=== PATIENT | male | born 1975 | race Two or more races ===

== ENCOUNTER 2025-03-16 18:18 | Emergency (ER) | payer OTHER ==
[~2025-03-16] VITALS: Ht 182.9 cm; Wt 105.1 kg
[2025-03-16 18:52] LABS: Hematocrit 43.9 % (41.0-53.0); Hemoglobin 15.3 g/dL (13.5-17.5); Mean Corpuscular Hemoglobin 30.1 pg (28.0-32.0); Mean Corpuscular Volume 86.2 fL (80.0-100.0); Nucleated Red Blood Cells % 0.1 %
[2025-03-16] MEDS: ONDANSETRON ODT 4 MG TAB PO ONE (19:01)
[2025-03-16 19:07] LABS: Alanine Aminotransferase 33 U/L (7-40); Alkaline Phosphatase 101 U/L (46-116); Calcium 9.1 mg/dL (8.7-10.4); Carbon Dioxide 29 mmol/L (20-31); Chloride 102 mmol/L (98-107)
[2025-03-16 19:08] LABS: Albumin 4.5 g/dL (3.2-4.8); Anion Gap 10 (5-15); BUN/Creatinine Ratio 12.5 (10.0-20.0); Bilirubin, Total 0.5 mg/dL (0.2-1.0); Blood Urea Nitrogen 12 mg/dL (9-23); Glucose 88 mg/dL (74-106); Lipase 49 U/L (12-53); Potassium 4.2 mmol/L (3.5-5.1); Sodium 141 mmol/L (136-145); Total Protein 7.3 g/dL (5.7-8.2)
--- NOTE | 2025-03-16 20:24 | ED.PDOC ---
History of Present Illness HPI Comments 49-year-old male presents to the ED with a chief complaint of headache with associated symptoms of nausea, substernal chest pressure, and dizziness for one- week. Patient reports generalized headache as constant, with some alleviation via Tylenol medication. Patient reports being unable to sleep last night due to the pain. There are no further complaints or modifying factors at this time. REVIEW OF SYSTEMS: General: No fever, no chills, or fatigue HEENT: No sore throat, no earache, no congestion, no neck pain. Cardiac: (+) substernal chest pressure. No chest pain. No palpitations. Lungs: No shortness of breath, no cough. GI: (+) nausea, no vomiting, no diarrhea, no constipation, no abdominal pain : No dysuria, frequency, or urgency. No hematuria. Musculoskeletal: No joint pain , no joint swelling, no extremity edema. Skin: No rash, no itching. Neuro: (+) headache, (+) dizziness, no weakness (And as sated in HPI) PHYSICAL EXAM: General: Awake, alert and oriented. No acute distress. Skin: Skin in warm, dry and intact. Appropriate color for ethnicity. HEENT: The head is normocephalic and atraumatic. Conjunctivae are clear without exudates or hemorrhage. Sclera is non-icteric. Eyelids are normal in appearance without swelling or lesions. Oral mucosa is pink and moist Neck: The neck is supple with normal range of motion. No JVD. Cardiac: Heart rate and rhythm are normal. No murmurs, gallops, or rubs are auscultated. Respiratory: No signs of respiratory distress. Lung sounds are clear in all l obes bilaterally without rales, rhonchi, or wheezes. Abdominal: Abdomen is soft, non-tender without distention, guarding or rigidity. Bowel sounds are present and normoactive in all four quadrants. Extremities: Lower extremities without edema. Neurological: The patient is awake, alert and oriented to person, place, and time with normal speech. Speech is clear. There is no facial asymmetry. Psychiatric: Appropriate mood and affect. Good judgement and insight. Chief Complaint: Nausea/Vomiting Time Seen by MD: 19:54 Reviewed Notes: Medications, Allergies Allergies: Coded Allergies: NO KNOWN ALLERGIES (Unverified , 03/16/25) Information Source: Patient Mode of Arrival: Ambulatory Severity: Moderate Timing: Weeks Duration: Since onset Past Medical History PAST MEDICAL HISTORY: Denies Surgical History: Denies all surgeries Family History Family History: Reviewed,noncontributory to illness, No family hx of Cancer, No family hx of DM, No family hx of Heart fermin, No family hx of HTN, No family hx ofKidney fermin, No family hx of Liver fermin, No family hx of Lung fermin, No family hx of Stroke Social History Smoker: Non-Smoker Alcohol: Denies ETOH Use Drugs: Denies Drug Use Lives In: Home Was a procedure done? Was a procedure done?: No Differential Dx Considerations may include: Differential diagnoses considered include but are not limited to temporal arteritis, acute angle closure glaucoma, encephalitis, bacterial meningitis, carbon monoxide poisoning, posttraumatic headache, SAH, subdural hematoma, cervical artery dissection, venous sinus thrombosis, CVA, migraine headache, cluster headache, tension headache, TMJ disorder, frontal sinusitis, cervical spondylosis, intracranial mass, pituitary apoplexy. X-Ray, Labs, Meds, VS Vital Signs Date Time Temp Pulse Resp B/P (MAP) Pulse Ox O2 Delivery O2 Flow Rate FiO2 03/16/25 22:24 Room Air* 0 21 03/16/25 21:54 98.8 59 18 146/94 (111) 98 98.8 03/16/25 19:03 98.2 63 17 168/98 (121) 99 98.2 03/16/25 18:20 97.1 74 16 158/92 96 97.1 Lab Test 03/16/25 21:37 03/16/25 18:38 Range/Units Influenza Type A Antigen Negative Negative Influenza Type B Antigen Negative Negative SARS-CoV-2 Antigen (Rapid) Negative NEGATIVE White Blood Count 7.2 4.4-10.8 10^3/uL Red Blood Count 5.09 4.5-5.90 10^6/uL Hemoglobin 15.3 13.5-17.5 g/dL Hematocrit 43.9 41.0-53.0 % Mean Corpuscular Volume 86.2 80.0-100.0 fL Mean Corpuscular Hemoglobin 30.1 28.0-32.0 pg Mean Corpuscular Hemoglobin Concent 34.9 32.0-36.0 g/dL Red Cell Distribution Width 12.4 11.8-14.3 % Platelet Count 216 140-450 10^3/uL Mean Platelet Volume 7.7 6.9-10.8 fL Neutrophils (%) (Auto) 60.3 37.0-80.0 % Lymphocytes (%) (Auto) 29.5 10.0-50.0 % Monocytes (%) (Auto) 6.2 0.0-12.0 % Eosinophils (%) (Auto) 3.4 0.0-7.0 % Basophils (%) (Auto) 0.6 0.0-2.0 % Neutrophils # (Auto) 4.4 1.6-8.6 10 ^3/uL Lymphocytes # (Auto) 2.1 0.4-5.4 10 ^3/uL Monocytes # (Auto) 0.4 0-1.3 10 ^3/uL Eosinophils # (Auto) 0.2 0-0.8 10 ^3/uL Basophils # (Auto) 0 0-0.2 10 ^3/uL Nucleated Red Blood Cells 0.1 % Sodium Level 141 136-145 mmol/L Potassium Level 4.2 3.5-5.1 mmol/L Chloride Level 102 98-107 mmol/L Carbon Dioxide Level 29 20-31 mmol/L Anion Gap 10 5-15 Blood Urea Nitrogen 12 9-23 mg/dL Creatinine 0.96 0.700-1.30 mg/dL Glomerular Filtration Rate Calc 96 >90 mL/min BUN/Creatinine Ratio 12.5 10.0-20.0 Serum Glucose 88 74-106 mg/dL Calcium Level 9.1 8.7-10.4 mg/dL Total Bilirubin 0.5 0.2-1.0 mg/dL Aspartate Amino Transferase (AST) 21 13-40 U/L Alanine Aminotransferase (ALT) 33 7-40 U/L Alkaline Phosphatase 101 46-116 U/L Troponin I High Sensitivity < 3 L </=54 ng/L Total Protein 7.3 5.7-8.2 g/dL Albumin 4.5 3.2-4.8 g/dL Lipase 49 12-53 U/L Current Medications Medications (Trade) Dose Ordered Sig/Leah Route Start Time Stop Time Status Last Admin Ondansetron HCl (Zofran Po) 4 mg ONCE ONCE PO 03/16/25 18:30 03/16/25 18:31 DC 03/16/25 19:01 Sodium Chloride 1,000 ml @ 1,000 mls/hr Q1H ONCE IV 03/16/25 20:30 03/16/25 21:29 DC 03/16/25 20:30 Ketorolac Tromethamine (Toradol Injection) 30 mg ONCE ONCE IV 03/16/25 20:30 03/16/25 20:31 DC 03/16/25 22:11 Diphenhydramine HCl (Benadryl Injection) 25 mg ONCE ONCE IV 03/16/25 20:30 03/16/25 20:31 DC 03/16/25 22:12 Metoclopramide HCl (Reglan Injection) 10 mg ONCE ONCE IV 03/16/25 20:30 03/16/25 20:31 DC 03/16/25 22:11 Time of 1ST Reevaluation: 20:53 Reevaluation 1ST: Unchanged Patient Education/Counseling: Need For Follow Up Family Education/Counseling: No Family Present SEPSIS Sepsis Screen Date sepsis recognized/suspect: Mar 16, 2025 Time Sepsis recognized/suspect: 1821 Recent Procedure: No On Antibiotic Therapy: No Respiratory Rate >20: No Heart Rate >90: No Temp<36 C (96.8 F) or >38.3 C: No SBP <90 or MAP <65 mmHG: No New Acute Mental Status Change: No Is the patient on CPAP, BIPAP,: No Physician Orders Po Trial (03/16/25 ) Head Without Contrast (03/16/25 20:23) Electrocardigram (03/16/25 20:23) Chest Xray 1 View (03/16/25 22:04) Vital Signs Date Time Temp Pulse Resp B/P (MAP) Pulse Ox O2 Delivery O2 Flow Rate FiO2 03/16/25 22:24 Room Air* 0 21 03/16/25 21:54 98.8 59 18 146/94 (111) 98 98.8 03/16/25 19:03 98.2 63 17 168/98 (121) 99 98.2 03/16/25 18:20 97.1 74 16 158/92 96 97.1 Laboratory Tests Test 03/16/25 18:38 White Blood Count 7.2 10^3/uL (4.4-10.8) Medications Medications Dose Ordered Sig/Leah Route Start Time Stop Time Status Last Admin Dose Admin Diphenhydramine HCl 25 mg ONCE ONCE IV 03/16/25 20:30 03/16/25 20:31 DC 03/16/25 22:12 Ketorolac Tromethamine 30 mg ONCE ONCE IV 03/16/25 20:30 03/16/25 20:31 DC 03/16/25 22:11 Metoclopramide HCl 10 mg ONCE ONCE IV 03/16/25 20:30 03/16/25 20:31 DC 03/16/25 22:11 Ondansetron HCl 4 mg ONCE ONCE PO 03/16/25 18:30 03/16/25 18:31 DC 03/16/25 19:01 Sodium Chloride 1,000 ml @ 1,000 mls/hr Q1H ONCE IV 03/16/25 20:30 03/16/25 21:29 DC 03/16/25 20:30 Departure 1 Departure Time of Disposition: 23:28 Impression: Primary Impression: Headache Disposition: HOME / SELF CARE / HOMELESS Condition: Stable Comments [age] year old M presents with headache. No focal neurological symptoms. Neuro exam is benign. Pt is nontoxic. VSS. Based on history and normal neurological exam I have low suspicion for intracranial tumor, intracranial bleed, meningitis, temporal arteritis, glaucoma, CO poisoning. Most likely patient has benign headache, recommend rest, hydration, and OTC pain control. Critical Care Note Critical Care Time?: No Stability Stability form required: No Heart Score Heart Score: Heart Score Response (Comments) Value History N/A 0 EKG N/A 0 Age N/A 0 Risk Factors N/A 0 Troponin N/A 0 Total 0 I personally scribed for ADAM QUEEN MD ([email or web address]) on 03/16/25 at 20:24. Electronically submitted by Tomasa Gamez ([facility]). ADAM QUEEN MD Mar 16, 2025 20:24
[2025-03-16] MEDS: SODIUM CHLORIDE 0.9% 1,000 ML IV ONE (20:30)
--- NOTE | 2025-03-16 20:54 | DVH ---
EXAM: CT HEAD WITHOUT CONTRAST INDICATION: New, severe, headache times one-week TECHNIQUE:: CT images of the head were obtained without administration of IV contrast. CT scans at this facility use dose modulation, iterative reconstruction, and/or weight based dosing when appropriate to reduce radiation dose to as low as reasonably achievable. COMPARISON: None FINDINGS: PARENCHYMA: No acute hemorrhage. There is no mass effect, midline shift, or herniation. There is preservation of the rincon white differentiation. VENTRICLES: No hydrocephalus. EXTRA-AXIAL SPACES: No extra-axial fluid collections. OTHER: The bony structures are intact. Mucous retention cysts of the right maxillary sinus. IMPRESSION: 1. No CT evidence of an acute intracranial abnormality.
[2025-03-16 21:54] VITALS: BP 146/94; PULSE 59; RESP 18; TEMP 98.8; O2SAT 98
[2025-03-16] MEDS: KETOROLAC TROMETH 30 MG/ML 1ML VIAL IV ONE (22:11)
[2025-03-16] MEDS: METOCLOPRAMIDE HCL 5MG/ml INJ 2ml VIAL IV ONE (22:11)
[2025-03-16] MEDS: diphenhydrAMINE HCL 50 MG/1 ML VL IV ONE (22:12)
--- NOTE | 2025-03-16 22:32 | DVH ---
EXAM: XY CHEST XRAY 1 VIEW CLINICAL HISTORY: Chest pain TECHNIQUE: Single frontal view of the chest WID: COMPARISON: None FINDINGS: Lines and tubes: None Chest: The heart size and pulmonary vasculature is within normal limits. No pleural effusion, pneumothorax, or consolidation. The osseous structures are grossly intact. Multilevel thoracic spondylosis. IMPRESSION: 1. No acute cardiopulmonary abnormality.
[2025-03-16 22:57] LABS: COVID19 ANTIGEN SOFIA FIA NEGATIVE (NEGATIVE)
== END 2025-03-17 00:13 | disposition home or self-care (01) ==
LOC: ER 18:18
DX: R51.9 Headache, unspecified (principal); Z79.899 Other long term (current) drug therapy; Z20.822 Contact with and (suspected) exposure to COVID-19
CPT/HCPCS: 36415; 70450; 71045; 80053; 83690; 84484; 85025; 87426; 87804; 96361; 96374; 96375; 99285; J1200; J1885; J2765; J7030; Q0162